=== PATIENT | female | born 1970 | race Caucasian/White ===

== ENCOUNTER 2023-04-20 09:02 | Observation (INO) ==
--- NOTE | 2023-04-15 10:21 | Anesthesiology Consultation ---
Date of Service April 15, 2023 Assessment & Plan Chart Review Chart Review: Pending: Refer to Additional Notes / Consult section (Please have patient's airway evaluated by PAT, please obtain medical clearance note per Dr. Disla's H&P) History Surgery Operation Date: 04/20/23 10:00 Proposed Procedures p Left Shoulder Arthroscopy, Rotator Cuff Repair, Distal Clavicle Excision(Left) - Kleber Disla MD Height/Weight Height: 5 ft 2 in Weight: 118.388 kg Allergies Allergy/AdvReac Type Severity Reaction Status Date / Time latex Allergy blisters Verified 04/12/23 11:12 allen Allergy Swelling Verified 04/12/23 11:12 of Lip/Tongue/Throat morphine Allergy Anaphylaxis Verified 04/12/23 11:10 nickel Allergy Rash Verified 04/12/23 15:32 Tetanus Vaccines and Toxoid Allergy Rash Verified 04/12/23 11:12 walnut Allergy Swelling Verified 04/12/23 11:12 of Lip/Tongue/Throat erythromycin base AdvReac "worms Verified 04/12/23 11:12 crawling under my skin" artificial sweeteners Allergy migraine, Uncoded 04/12/23 11:12 angry/agitation Medications Home Medications Medication Instructions Recorded Confirmed Last Taken albuterol sulfate 90 mcg/actuation 1 inh inhalation QID PRN sob 04/12/23 04/12/23 Unknown aerosol inhaler atorvastatin 20 mg tablet 20 mg PO HS 04/12/23 04/12/23 Unknown bupropion HCl 150 mg 24 hr tablet, 150 mg PO HS 04/12/23 04/12/23 Unknown extended release (Wellbutrin XL) buspirone 10 mg tablet 10 mg PO TID 04/12/23 04/12/23 Unknown cyclobenzaprine 10 mg tablet 10 mg PO TID PRN Muscle Spasm 04/12/23 04/12/23 Unknown escitalopram oxalate 20 mg tablet 20 mg PO HS 04/12/23 04/12/23 Unknown (Lexapro) fluticasone propionate 50 1 spray intranasal HS 04/12/23 04/12/23 Unknown mcg/actuation nasal spray,suspension furosemide 20 mg tablet (Lasix) 20 mg PO BID 04/12/23 04/12/23 Unknown gabapentin 300 mg capsule 300 mg PO HS 04/12/23 04/12/23 Unknown lorazepam 0.5 mg tablet 0.5 mg PO DAILY PRN Anxiety 04/12/23 04/12/23 Unknown losartan 25 mg tablet 25 mg PO HS 04/12/23 04/12/23 Unknown meloxicam 7.5 mg tablet 7.5 mg PO BID 04/12/23 04/12/23 Unknown montelukast 10 mg tablet 10 mg PO PM 04/12/23 04/12/23 Unknown (Singulair) tirzepatide 10 mg/0.5 mL 10 mg subcut WK 04/12/23 04/12/23 Unknown subcutaneous pen injector (Mounjaro) Past Medical History Medical History Morbid obesity with BMI of 45.0-49.9, adult Pulmonary nodules Dr. Mullen, [facility] monitoring Osteoarthritis Lower back pain GERD (gastroesophageal reflux disease) diet controlled DM type 2 (diabetes mellitus, type 2) Anxiety and depression HTN (hypertension) Asthma rare use of PRN inh PONV (postoperative nausea and vomiting) Past Family History Family History Other No family history of adverse response to anesthesia Past Surgical History Surgical History History of esophagogastroduodenoscopy (EGD) History of colonoscopy History of dilation of urethra History of Achilles tendon repair BL History of oral surgery H/O ovarian cystectomy History of arthroscopy of right knee x2 History of arthroscopy of left knee History of endometrial ablation + tubal ligation History of x2 History of carpal tunnel release of both wrists History of bunionectomy Social History Smoking Status: Former smoker Do You Dip or Chew Tobacco: No Smoking End Date: 1996 Hx Alcohol Use: Yes alcohol intake frequency: holidays/special occasions only Hx Substance Use: No substance use type: does not use Testing Electrocardiogram Date: 04/10/23 NSR @ 63 bpm Poor R wave progression Nonspecific T wave abnormality
[~2023-04-20 09:02] MED LIST: BUPIVACAINE 0.5 % 5 MG/1 ML PF 10ML VIAL ONE; DEXAMETHASONE SOD INJ 4 MG/ML VIAL ONE; EpINEphrine HCL INJ 1 MG/ML 1ML SYRINGE IR ONE; LIDOCAINE 2% 2 ML VIAL/AMP(20MG/ML) INFIL ONE; LR 15ML/HR IV SCH; MIDAZOLAM HCL 1 MG/ML 2ML VIAL ONE; ONDANSETRON INJ 2 MG/ML 2 ML VIAL ONE; PROPOFOL IV EMULSION 10 MG/ML 20 ML VIAL IV ONE; TRANEXAMIC ACID 1,000 MG **IV Pre-op IV SCH; ceFAZolin 2000MG 2,000 MG/15 ML SYR IV SCH; fentaNYL citrate PF 100 MCG/2 ML VIAL ONE
[2023-04-20 09:41] LABS: Basophils # (auto) 0.03 K/uL (0.00-0.20); Basophils % (auto) 0.3 %; Eosinophils # (auto) 0.21 K/uL (0.00-0.50); Eosinophils % (auto) 2.1 %; Hematocrit (blood only) 41.7 % (37.0-47.0); Hemoglobin 14.1 g/dl (12.0-16.0); Immature Granulocytes # (auto) 0.05 K/uL (0.01-0.20); Immature Granulocytes % (auto) 0.5 %; Lymphocytes # (auto) 3.15 K/uL (1.20-3.40); Lymphocytes % (auto) 31.1 %; Mean Corpuscular Hemoglobin 31.2 pg (25.0-34.0); Mean Corpuscular Hgb Conc 33.8 g/dL (32.0-36.0); Mean Corpuscular Volume 92.3 fL (80.0-100.0); Mean Platelet Volume 9.7 fL (9.4-12.4); Monocytes % (auto) 6.9 %; Neutrophils % (auto) 59.1 %; Platelet Count 212 K/uL (130-400); RDW Coefficient of Variation 12.6 % (11.5-14.5); RDW Standard Deviation 42.8 fL (36.4-46.3); Red Blood Count 4.52 M/uL (4.20-5.40); White Blood Count 10.14 K/ul (4.8-10.8)
[2023-04-20 09:59] LABS: BUN Creatinine Ratio 17.1 (10-20); Calcium 9.4 mg/dl (8.6-10.3); Creatinine Clr Calc Pharmacy 99.8 ml/min; Est GFR (African American) 94.7 ml/min; Est GFR (Non-African American) 81.7 ml/min; Potassium 3.9 mmol/L (3.5-5.1)
[2023-04-20 10:07] LABS: INR 0.9 (0.9-1.1); Partial Thromboplastin Time 27 Seconds (21-31); Prothrombin Time 10.3 Seconds (9.0-12.0)
[2023-04-20] MEDS ORDERED: ATROPINE SULFATE 0.1 MG/ML 10ML SYR IV PRN (10:17)
[2023-04-20] MEDS ORDERED: ePHEDrine sulfate 50 MG/ML AMP IV PRN (10:17)
[2023-04-20] MEDS ORDERED: fentaNYL citrate PF 100 MCG/2 ML VIAL IV PRN (10:17)
[2023-04-20] MEDS ORDERED: LIDOCAINE 1%/EPINEPHRINE 1:100,000 20 ML VIAL ONE (10:19)
--- NOTE | 2023-04-20 10:23 | History & Physical Bridge Note ---
Date of Service April 20, 2023 History & Physical Bridge Note I have examined the patient, reviewed the History & Physical and in the interval since the performance of the History & Physical I have noted the following changes of clinical significance: no changes noted
[2023-04-20] MEDS ORDERED: methylPREDNISolone acetate 80 MG/ML VIAL ONE (10:34)
[2023-04-20] MEDS ORDERED: LIDOCAINE 1% LOCAL 20 ML VIAL ONE (10:34)
[2023-04-20] MEDS ORDERED: ceFAZolin 330 MG/ML 1 GM VIAL ONE (13:59)
[2023-04-20] MEDS ORDERED: ROCURONIUM BROMIDE 10 MG/ML 5 ML VIAL IV ONE ×2 (13:59)
[2023-04-20] MEDS ORDERED: oxyCODONE/ACETAMINOPHEN 5mg/325mg TAB PO PRN ×2 (14:22)
[2023-04-20] MEDS ORDERED: ONDANSETRON INJ 2 MG/ML 2 ML VIAL IV PRN ×2 (14:22→20:02)
[2023-04-20] MEDS ORDERED: ceFAZolin 1000MG 1,000 MG/7.5 ML SYR IV ONE (14:22)
--- NOTE | 2023-04-20 14:34 | Operative Report ---
Post Operative Report Pre & Post Diagnosis Operation Date: 04/20/23 10:30 Pre-Op Diagnosis: Left Shoulder Rotator Cuff Tear Post-Op Diagnosis: Left Shoulder Rotator Cuff Tear I identified the patient and participated in the time-out.: Yes Procedure Operation Date: 04/20/23 10:30 Actual Procedures p Left Shoulder Arthroscopy, Rotator Cuff Repair, Distal Clavicle Excision, Injection left Middle Finger(Left) - Kleber Disla MD Surgeon Kleber Disla MD Television Parts Tester Kiko Mercer MD; Marilee Farah PA - C Estimated Blood Loss 25 Findings Consistent with Post-Op Diagnosis Same as postoperative diagnosis. Specimens None Description of Procedure Please see detailed operative note. I attest to the content of the Intraoperative Record and any orders documented therein. Any exceptions are noted below.
--- NOTE | 2023-04-20 14:45 | Anesthesiology Progress Note ---
Date of Service April 20, 2023 Anesthesia Post Procedure Vital Signs Vital Signs: Temp Pulse Resp BP Pulse Ox O2 Del Method O2 Flow Rate 04/20/23 14:40 94 H 19 118/63 95 Oxymask 15 04/20/23 14:30 101 H 19 110/67 93 Oxymask 15 04/20/23 14:23 36.3 C L 94 H 16 107/60 92 Oxymask 15 04/20/23 09:40 36.9 C 75 20 132/81 99 Room Air Pain Intensity Left Shoulder: Pain Intensity: 5 Transfer of Care Handoff Completed per policy Notes Mental Status: alert / awake / arousable and participated in evaluation Nausea / Vomiting: adequately controlled Pain: adequately controlled Airway Patency, RR, SpO2: stable & adequate BP & HR: stable & adequate Hydration State: stable & adequate Anesthetic Complications: no major complications apparent and Pt Satisfied with anesthetic care
[2023-04-20] MEDS ORDERED: ALBUTEROL 0.083% NEBU SOLN 3 ML VIAL ONE (15:06)
--- NOTE | 2023-04-20 15:13 | Operative Report ---
Post Operative Report Pre & Post Diagnosis Operation Date: 04/20/23 10:30 Pre-Op Diagnosis: Left Shoulder Rotator Cuff Tear, AC joint arthritis Left middle finger pain, probable trigger digit. Post-Op Diagnosis: Same I identified the patient and participated in the time-out.: Yes Procedure Operation Date: 04/20/23 10:30 Actual Procedures p Left Shoulder Arthroscopy, Rotator Cuff Repair, arthroscopic distal Clavicle Excision, sterile injection left Middle Finger(Left) - Kleber Disla MD Surgeon Kleber Disla MD Hand Laminator Kiko Mercer MD; Marilee Farah PA - C Estimated Blood Loss 25 Findings Consistent with Post-Op Diagnosis Specimens None Anesthesia Type General Regional Complications none Disposition Accompanied Patient To Recovery: No Disposition: Recovery Room Indications Inessa is 52. She has left shoulder pain refractory to nonsurgical treatment. She has biceps pathology. A potential tear of the upper border of the subscapularis and a potential tear involving the leading edge of her supraspinatus. She also has symptomatic AC joint arthritis and a large anterior acromial spur. She has elected to proceed with operative intervention. In the holding area she asked me to look at and inject her left middle finger. She reports that the finger has been clicking for her but not locking. She notes tenderness at the MP flexion crease with a lump present. On examination she had full range of motion with intact FDP and FDS sensation and capillary refill. There was enlargement at the A1 dylan area which could be a small ganglion cyst versus thickening of the dylan itself. There was some minor clicking present but no locking with gripping. A new consent form was filled out and the finger will be injected while she is asleep at her request. Description of Procedure Informed consent. Patient identified. She identified the operative site as the left shoulder. I marked with my initials. A preoperative surgical timeout performed. A preop dose of IV antibiotics was given. She was taken to the operating room positioned supine on the operating room table. The anesthetic was administered. She was positioned with her heels padded and a pillow beneath her knees. Her torso was secured to the table with the kidney rest. She was position beachchair. The head was tilted and turned slightly to the opposite side to improve access to the anterior aspect of the shoulder. The tenent body positioner and [employer] arm holders were utilized. Examination of the shoulder revealed full and equal range of motion. Bony prominences were inspected and padded. The left middle finger was injected with 10 mg of Depo-Medrol and 1/2 cc of 1% plain lidocaine into the flexor sheath at the level of the metacarpal phalangeal joint flexion crease. The finger was prepped with alcohol. A 27-gauge needle was utilized. This was done prior to prepping and draping the shoulder. A posterior soft spot viewing portal was established followed by an anterior mid glenoid working portal using the outside in technique. Diagnostic arthroscopy was performed. The labrum was intact circumferentially. The chondral surfaces were normal. The middle anterior inferior and posterior inferior glenohumeral ligaments were unremarkable. Axillary pouch bare area and the posterior rotator cuff are normal. Supraspinatus and infraspinatus look normal. The synovial layer was debrided and no partial or full-thickness rotator cuff damage was noted. There was no significant tendinopathy and no calcium deposit was ident ified. The scope was placed anterior to visualize the posterior structures. The posterior capsule and labrum were unremarkable. Upon entering the shoulder joint it was noted that the biceps was completely ruptured and retracted out of the shoulder joint. The superior labrum where the biceps had ruptured had a small remnant left which was debrided. The superior labrum was lax. The subscapularis area looked normal. The medial sling of the biceps/superior glenohumeral ligament was intact. I went ahead and debrided around this area and took the synovial flagstone layer of the subscapularis. What I identified was detachment of the upper 5 to 7 mm in situ with some fraying of the tendon. This was debrided. The remainder of the tendon looked to be attached and only a small portion of the footprint was exposed. I debrided the tendon and elected to proceed with repair. An accessory anterolateral portal was created using a outside in technique and a cannula was inserted. The footprint was denuded with a curette and shaver. Rotator interval was debrided along with the subscapularis bursa. The coracoid humeral interval on the MRI was 10 to 11 mm. Clinically there was no evidence of narrowing of the coracoid humeral interval and therefore I did not think a coracoplasty was necessary. I inserted a spinal needle just lateral to the coracoid to get the appropriate angle for implant ation of the anchor. The awl was carefully inserted and tapped into place. A 4.5 mm bio composite swivel lock was inserted with good purchase. Suture management was performed and the Spectrum was utilized to pass the sutures through the tendon in a horizontal mattress fashion. 1 set of sutures was passed up through the tendon in a horizontal mattress fashion. The other set of sutures had 1 limb passed through the upper border while the other limb came directly out of the anchor but not through the tissue. The anchor was inserted just lateral to the articular cartilage margin. Suture was then tied with a modified Rj knot backed up with reverse half hitches on alternating posts using a secure repair. In the region of the suspected rotator cuff tear a suture was passed percutaneou sly through the rotator cuff using a spinal needle and brought out the anterior portal. Attention was then turned to the subacromial space. This was inspected on the bursal surface. There was minimal bursitis. The bursal surface was thoroughly inspected. I did not see any evidence of a identifiable calcium deposit. The rotator cuff was intact without evidence of partial or full- thickness tearing throughout the entire bursal surface. The undersurface of the acromion was denuded of soft tissue. She had a oddly shaped acromion undersurface. The AC joint was identified. There was a large downward sloping prominence anterior to the AC joint. This protruded downwards at least 5 to 7 mm and also proceeded medial shaw about the same. Could be ossified corico-acromial ligament. I carefully debrided this removing the anteromedial spur and flatten the undersurface of the acromion from back to front. It was also smooth from [id number]. The distal clavicle was identified. It was exposed with electrocautery and shaver. I made 2 passes with the bur removing approximately 7 to 10 mm of distal clavicle taking care to excise superior and posterior. The distal clavicle was visualized from anterior to confirm complete resection. It was measured with a probe. Superior and posterior capsule was left intact. The shaver was run through the shoulder to product picker loose debris. Arthroscopic portals were closed with 4-0 nylon. A soft sterile dressing was applied Xeroform 4 x 4's ABD foam tape. ABD in the armpit UltraSling. Patient was awakened from anesthesia without difficulty and taken to the recovery room stable condition. There were no specimens or complications. Counts were correct and blood loss is estimated to be 25 cc. At the conclusion of the operation spoke to patient's informed of my findings to discuss postoperative plan. I attest to the content of the Intraoperative Record and any orders documented therein. Any exceptions are noted below.
--- NOTE | 2023-04-20 17:10 | Communication Note ---
Date of Service: April 20, 2023 The patient was seen in phase 2. The patient stated having numbness in her B/L feet. She stated that the numbness was worse when she woke up from the [facility]. She stated that now the numbness is mostly on the plantar surface of her feet. The patient was able to ambulate to the bathroom per the nurse. The nurse spoke to Dr. Disla, and he stated one of his co-workers would come evaluate the patient prior to discharge. I spoke to the patient about the likelihood of the compression stockings and positioning that contributed to her numbness. I recommended the patient come back to the hospital if the patient's symptoms worsened or if the symptoms did not resolve by tomorrow. The patient and family member were understanding.
--- NOTE | 2023-04-20 17:42 | History & Physical Report ---
Date of Service April 20, 2023 Assessment & Plan (1) Rotator cuff tear: Plan: She is status post left rotator cuff repair with Dr. Dilsa today. Continue the sling with abduction pillow at all times. No range of motion of the left shoulder. No use of the left arm. Allowed for active range of motion of the fingers, wrist and elbow as tolerated. Readjust sling as needed for comfort. May be comfortable elevating head of bed for sleep. May resume regular diet as tolerated. Pain medication as prescribed and as needed for her left shoulder discomfort. Plan is to admit due to paresthesias. Will obtain a glycemic control consult due to her history of diabetes. Ice to left shoulder as needed for pain and swelling. Findings discussed with Dr. Disla. Patient understands and agrees with the plan. Will plan for discharge to home with her tomorrow if things are improved. (2) Paresthesia of bilateral legs: Plan: She does have progressing paresthesias of the right leg. Will plan to keep overnight in observation. We will do neurovascular checks frequently during her inpatient stay. Elevation as needed. We are going to discontinue the ARMOND stockings for now. She can be out of bed with bedside commode and assistance. She may weight-bear as tolerated but may need to need a cane in her right hand to assist with ambulation. She is not able to use her left arm for any assistive device. Continue to evaluate paresthesias. She may do full range of motion of the lower extremity joints as tolerated. Will obtain a physical therapy consult for tomorrow if her paresthesias have improved to assess ability to ambulate with or without an assistive device and to safely return home. Will reeval paresthesias in the AM. Hopefully this will improve relatively quickly. Most likely from positioning or seatbelt during her surgery. She understands and agrees with the plan. All questions were answered. Hopefully plan to return home with her tomorrow if things have improved. Approximately 60 minutes were spent obtaining a history, performing physical exam, discussing findings with patient and Dr. Disla, doing admission orders and history and physical. Admission and Anticipated Discharge Date Admission Date: Admission date: 04/20/2023 Anticipated discharge date: 05-13 History of Present Illness Chief Complaint: numbness bilateral lower extremities Primary Care Provider: Juwan Padilla Patient is a pleasant 52-year-old female who is seen in ambulatory surgery unit after undergoing an elective left left rotator cuff repair of her shoulder. Her surgery was performed today by Dr. Disla. Postoperatively she has had noticeable numbness of both of her feet. The right leg has been getting worse over the last hour or 2. She states that it started in both of her feet and the right leg has progressed up to the mid thigh area. It was thought that it was from the thigh-high ARMOND stockings that were digging into her thighs and knee teds were applied. She did have a rotator cuff repair in the beachchair position today. She denies any pain in either leg. She states that the left foot is also numb but does seem to be improving. She is able to ambulate to the bathroom but feels that this is getting worse. She states that her legs feel like "tree trunks". She does not feel that she is able to lift her foot. She does not feel that her leg, especially her right leg will hold her. The left shoulder is doing fine. The sling is in place. She has had no postoperative nausea or vomiting. Denies any significant pain in the left shoulder. She does feel that the nerve block is still working. She is never had numbness or tingling in either leg in the past. Allergies Allergy/AdvReac Type Severity Reaction Status Date / Time latex Allergy blisters Verified 04/20/23 09:35 allen Allergy Swelling Verified 04/20/23 09:35 of Lip/Tongue/Throat morphine Allergy Anaphylaxis Verified 04/20/23 09:35 nickel Allergy Rash Verified 04/20/23 09:35 Tetanus Vaccines and Toxoid Allergy Rash Verified 04/20/23 09:35 walnut Allergy Swelling Verified 04/20/23 09:35 of Lip/Tongue/Throat erythromycin base AdvReac "worms Verified 04/20/23 09:35 crawling under my skin" artificial sweeteners Allergy migraine, Uncoded 04/20/23 09:35 angry/agitation Home Medications Medication Instructions Recorded Confirmed Type albuterol sulfate 90 mcg/actuation 1 inh inhalation QID PRN sob 04/12/23 04/20/23 History aerosol inhaler atorvastatin 20 mg tablet 20 mg PO HS 04/12/23 04/20/23 History bupropion HCl 150 mg 24 hr tablet, 150 mg PO HS 04/12/23 04/20/23 History extended release (Wellbutrin XL) buspirone 10 mg tablet 10 mg PO TID 04/12/23 04/20/23 History cyclobenzaprine 10 mg tablet 10 mg PO TID PRN Muscle Spasm 04/12/23 04/20/23 History escitalopram oxalate 20 mg tablet 20 mg PO HS 04/12/23 04/20/23 History (Lexapro) fluticasone propionate 50 1 spray intranasal HS 04/12/23 04/20/23 History mcg/actuation nasal spray,suspension furosemide 20 mg tablet (Lasix) 20 mg PO BID 04/12/23 04/20/23 History gabapentin 300 mg capsule 300 mg PO HS 04/12/23 04/20/23 History lorazepam 0.5 mg tablet 0.5 mg PO DAILY PRN Anxiety 04/12/23 04/20/23 History losartan 25 mg tablet 25 mg PO HS 04/12/23 04/20/23 History meloxicam 7.5 mg tablet 7.5 mg PO BID 04/12/23 04/20/23 History montelukast 10 mg tablet 10 mg PO PM 04/12/23 04/20/23 History (Singulair) tirzepatide 10 mg/0.5 mL 10 mg subcut WK 04/12/23 04/20/23 History subcutaneous pen injector (Mounjaro) acetaminophen 500 mg tablet 1,000 mg (2 x 500 mg) PO Q8H 30 04/20/23 Rx (Tylenol Extra Strength) days #180 tabs hydrocodone 5 mg-acetaminophen 325 1 tab PO Q4H PRN pain #20 tabs 04/20/23 Rx mg tablet ibuprofen 200 mg tablet (Advil) 600 mg (3 x 200 mg) PO QID PRN 04/20/23 Rx fever or pain #30 tabs Past Med/Surg History Medical History Morbid obesity with BMI of 45.0-49.9, adult Pulmonary nodules Dr. Mullen, [facility] monitoring Osteoarthritis Lower back pain GERD (gastroesophageal reflux disease) diet controlled DM type 2 (diabetes mellitus, type 2) Anxiety and depression HTN (hypertension) Asthma rare use of PRN inh PONV (postoperative nausea and vomiting) Surgical History History of esophagogastroduodenoscopy (EGD) History of colonoscopy History of dilation of urethra History of Achilles tendon repair BL History of oral surgery H/O ovarian cystectomy History of arthroscopy of right knee x2 History of arthroscopy of left knee History of endometrial ablation + tubal ligation History of x2 History of carpal tunnel release of both wrists History of bunionectomy Family History Other No family history of adverse response to anesthesia Social History Smoking Status: Former smoker Smoking End Date: 1996; Second Hand Exposure: Yes; Do You Dip or Chew Tobacco: No; Tobacco Cessation Education Requested by Patient: No Hx Alcohol Use: Yes Hx Substance Use: No Preferred Language: Maori Communication Ability: Effective 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 Beliefs That Will Affect Care: None Current Living Situation: Family Feels Safe at Home: Yes Safety Concerns: Feels Safe At This Time Assistive Devices: None Review of Systems Review of Systems: As per HPI otherwise reviewed and noncontributory Physical Exam Constitutional: WD/WN, vitals as above Eyes: PERRL, conjunctivae normal, anicteric sclerae ENMT: external ear and nose normal, oropharynx normal Neck: trachea midline, no thyromegaly Respiratory: normal respiratory effort, lungs clear to auscultation Cardiovascular: RRR, no murmur, no edema Chest (Breasts): Chest: normal inspection of chest Gastrointestinal (Abdomen): normal bowel sounds, soft, nontender, no hepatosplenomegaly Musculoskeletal: Exam of her left upper extremity: She does have full flexion and extension of her fingers. Sling is in place of her left shoulder. Postoperative dressings are in place, clean and dry. Distal pulses are 1+. Capillary fill is brisk. Fingers are warm. She has some mild difficulty with extending her wrist and her thumb. Suspect this is from the peripheral nerve block that she had preoperatively. Exam of her right lower extremity: She has normal motor strength of her right ankle, leg and thigh. She has diminished sensation along the lateral aspect of the right foot tracing up to the posterior aspect of the right knee. Skin is healthy and intact. Knee hide teds are in place. No distal edema. Distal pulses are 1+ in her right lower extremity. She has normal sensation on the medial side of the foot and lower leg. Strength with dorsiflexion, plantarflexion, inversion and eversion of the ankle, knee extension and flexion, and hip flexion, adduction and abduction are all 5/5. Calf is supple and nontender. Toes are nontender. Foot is nontender. Distal pulses are 1+. Capillary fill is brisk. Foot is warm. Exam of her left lower extremity: She has no distal edema. Knee-high Armond st ocking in place. Calf is supple and nontender. Full strength with dorsiflexion, plantarflexion, inversion and eversion of the ankle, flexion and extension of the left knee and hip flexion, adduction and abduction are all 5/5. Mild diminished sensation on the lateral aspect of the left foot. Toes are nontender. Foot is nontender. Distal pulses are 1+. Capillary fill is brisk. Foot is warm. Skin: no rashes, warm and dry Neurologic: Motor/Sensory: + sensory deficit (Right leg and left foot.); no fasciculations Psychiatric: A+Ox3, euthymic affect Results & Data Results & Data Vital Signs (Past 12 Hours) Vital Signs Temp Pulse Pulse Resp BP Pulse Ox O2 Del Method 04/20/23 17:00 37.2 C 102 H 18 121/70 94 Room Air 04/20/23 16:12 37.0 C 99 H 18 114/69 95 Room Air 04/20/23 15:30 37.2 C 95 H 18 104/66 93 Room Air 04/20/23 15:25 97 H 14 109/53 L 95 Room Air 04/20/23 15:20 96 H 14 102/64 99 Aerosol Mask 04/20/23 15:10 91 H 13 111/59 L 100 Aerosol Mask 04/20/23 15:00 97 H 17 110/62 93 Room Air 04/20/23 14:50 95 H 17 110/62 94 Oxymask 04/20/23 14:40 94 H 19 118/63 95 Oxymask 04/20/23 14:30 101 H 19 110/67 93 Oxymask 04/20/23 14:23 36.3 C L 94 H 16 107/60 92 Oxymask 04/20/23 09:40 36.9 C 75 20 132/81 99 Room Air O2 Flow Rate 04/20/23 17:00 04/20/23 16:12 04/20/23 15:30 04/20/23 15:25 04/20/23 15:20 8 04/20/23 15:10 8 04/20/23 15:00 04/20/23 14:50 4 04/20/23 14:40 15 04/20/23 14:30 15 04/20/23 14:23 15 04/20/23 09:40 Code Status & VTE Plan VTE Prophylaxis Plan VTE Prophylaxis will be ordered: No Reason for no VTE drug order: Treatment not indicated
[2023-04-20] MEDS: HYDROCODONE/ACETAMOPHEN 5/325MG TAB PO PRN (18:35)
[2023-04-20] MEDS ORDERED: MAGNESIUM HYDROXIDE SUSP 30 ML UDC PO PRN (20:02)
[2023-04-20] MEDS ORDERED: LORazepam 0.5 MG TAB PO PRN (20:02)
[2023-04-20] MEDS ORDERED: PHARMACY GLYCEMIC MGMT CONSULT PRN (20:02)
[2023-04-20] MEDS ORDERED: HYDROmorphone INJ 1 MG/ML SYRINGE IV PRN (20:02)
[2023-04-20] MEDS ORDERED: SODIUM CHLORIDE 0.9% 1,000 ML IV SCH (20:02)
[2023-04-20] MEDS ORDERED: oxyCODONE HCL IR 5 MG TAB (IMMEDIATE RELEASE) PO PRN (20:02)
[2023-04-20] MEDS ORDERED: traMADol HCL 50 MG TABLET PO PRN (20:02)
[2023-04-20] MEDS ORDERED: NALOXONE HCL 0.4 MG/1 ML VIAL/CARP IV PRN (20:02)
[2023-04-20] MEDS ORDERED: diphenhydrAMINE 50 MG/ML VIAL IV PRN (20:02)
[2023-04-20] MEDS ORDERED: bisacodyL 10 MG SUPP PR PRN (20:02)
[2023-04-20] MEDS ORDERED: HYDROmorphone INJ 0.5 MG/0.5 ML SYR IV PRN (20:02)
--- OUTSIDE RECORDS SUMMARY | 2023-04-20 20:30 | External Medical Summary | Continuity of Care Document ---
Author Name Unknown Organization [facility] [place] [id number] Address [address] [place] [address] [id number] Care Team Providers Care Customer Development Manager Name Role Phone Ankit Alonso Primary Care Physician [phone] [facility] [id number] Date(s): 04/10/23 - 04/10/23 [facility] [place] [id number] Medicine [address] [place] [id number] Encounter Diagnosis Rotator cuff tear, left(Discharge Diagnosis) - 04/10/23 Discharge Disposition: Home or Self Care Attending Physician: ANYA Farah, Marilee Rubin Referring Physician: MD Nighat, Kleber Hicks Allergies, Adverse Reactions, Alerts Substance Reaction Severity Status erythromycin unknown Active morphine unknown Active tetanus toxoid unknown Active mangoes allen Active Allergy Not found in Search 1 artificial sweetner Active walnuts walnut Active 1artificial sweetner Medications Albuterol (Eqv-ProAir HFA) 90 mcg/inh inhalation aerosol Start: 04/10/23 14:41:00 EST, prn Start Date: 04/10/23 Status: Ordered atorvastatin 20 mg oral tablet Start: 04/10/23 14:41:00 EST, 1 tab, PO, Daily Start Date: 04/10/23 Status: Ordered buPROPion 150 mg/24 hours (XL) oral tablet, extended release Start: 04/10/23 14:39:00 EST, 1 tab, PO, Daily Start Date: 04/10/23 Status: Ordered busPIRone 10 mg oral tablet Start: 04/10/23 14:40:00 EST, 1 tab, PO, tid Start Date: 04/10/23 Status: Ordered escitalopram 20 mg oral tablet Start: 04/10/23 14:40:00 EST, 1 tab, PO, Daily Start Date: 04/10/23 Status: Ordered fluticasone 50 mcg/inh nasal spray Start: 04/10/23 14:39:00 EST, 1 spray, each nostril, Daily Start Date: 04/10/23 Status: Ordered FREESTYLE DIANNE 3 SENSOR Start: 04/10/23 14:39:00 EST, FREESTYLE DIANNE 3 SENSOR Start Date: 04/10/23 Status: Ordered furosemide 20 mg oral tablet Start: 04/10/23 14:40:00 EST, 1 tab, PO, bid Start Date: 04/10/23 Status: Ordered gabapentin 300 mg oral capsule Start: 04/10/23 14:40:00 EST, just starting Start Date: 04/10/23 Status: Ordered losartan 25 mg oral tablet Start: 04/10/23 14:39:00 EST, 1 tab, PO, Daily Start Date: 04/10/23 Status: Ordered meloxicam 7.5 mg oral tablet Start: 04/10/23 14:39:00 EST, 1 tab, PO, bid Start Date: 04/10/23 Status: Ordered montelukast 10 mg oral tablet Start: 04/10/23 14:38:00 EST, 1 tab, PO, qPM Start Date: 04/10/23 Status: Ordered Mounjaro 10 mg/0.5 mL subcutaneous solution Start: 04/10/23 14:39:00 EST, 10 mg =, subQ, skipped for sugery Start Date: 04/10/23 Status: Ordered Hugheston 5 mg-325 mg oral tablet Start: 04/11/23 9:50:00 EST, 1 tab, PO, q4h, Disp# 18 tab, Refills: 0, Note to Pharmacy: initial therapy, PRN: as needed for pain, Pharmacy: [facility] Start Date: 04/11/23 Status: Ordered ondansetron 4 mg oral tablet Start: 04/10/23 14:39:00 EST, 1 tab, PO, ONCE, PRN: as needed for nausea/vomiting Start Date: 04/10/23 Status: Ordered Mental Status 04/10/23 Barriers to Learning one year None evide nt Mandatory Health Literacy Documentation Yes Health Literacy Communication Barriers N ever Primary Language Upper Sorbian Problem List Condition Confirmation Course Effective Dates Status Health St atus Informant Arthritis Confirmed Active DVT (deep venous thrombosis) 1 Confirmed Active Diabetes Confirmed Active High blood pressure Confirmed Active Joint swelling Confirmed Active Rotator cuff tear, left Confirmed Active blood clot Diagnosis Diagnosis Type Effective Dates Health Status Cl inical Service Informant Rotator cuff tear, left Discharge Diagnosis 04/10/23 Vital Signs Most recent to oldest [Reference Range]: 1 Temperature [36.5-37.9 DegC] 36.2 DegC *LOW* (04/10/23 2:38 PM) Heart Rate 68 bpm (04/10/23 2:38 PM) Blood Pressure 140/70mmHg (04/10/23 2:38 PM) Cuff Pulse Pressure 70 mmHg (04/10/23 2:38 PM) Social History Social History Type Response Smoking Status Never smoked cigaret gemini Sex Female Cardiology * Contributor_system, MUSE01: VERIFY, PERFORM Event Display: EKG Authored Date: Please click on link to see image. History and physical note * ANYA rGegg, Minerva: PERFORM Event Display: .HP Authored Date: Primary Care Provider MD Celeste, Ankit Castro Referring Provider MD Nighat, Kleber Hicks Chief Complaint L shoulder pre op History of Present Illness Inessa is a 52-year-old female here today for preopfor show arthroscopy, rotator cuff repair, distal clavicle excision with Dr Disla. She developed left shoulder and arm painafter injury inAugust 2022 during College move in when she felt a tear lifting a 60 lb box. She had immediate pain in the arm and shoulder swelling. She did not have bruising at onset. After injury she was evaluated with Dr. Tirado's PA at [facility] ordered an MRI. She did not try PT or injection.Shewas scheduled for surgery.Patient states she was referred to me by Dr. Guy at [facility] in [place] who has done multiple of her prior procedures. Presently, she reports constant pain event at rest deep in her shoulder and in her neck. She also has numbness in her hand which she has not had since carpal tunnel release in the 90s. She takes Meloxicam 7.5mg BID.She previously had bilateral carpal tunnel release. [1] Denies any major changes since she was last seen other than she feels like it isgetting worse. Patient reports she had a suspectedblood clot in10/2021 and was not treated. She had a Doppler that did not indicate a blood clot but had an abnormal blood test, elevated D-dimer and LLE swelling. She has since discontinued estrogen supplementation. No history of staph or MRSA. Problems. No allergy to metals. She does report some numbness in her right little finger. [2] hehas no family history of blood clots Review of Systems DeniesRecent illnesses, colds/flu, pneumonia, COVID or COVID exposures; DeniesFevers, chills, malaise; DeniesChest pain, heart palpitations; DeniesShortness of breath, cough; DeniesHeadacheor blurry vision; DeniesAbdominal pain, nausea, vomiting, diarrhea, or urinary symptoms Physical Exam Vitals & Measurements T:36.2C HR:68(Monitored) BP:140/70 SpO2:98% General: Pt is well nourished, seated on the exam table AA&O, in NAD, calm and cooperative during exam HENT: Nontraumatic, no gross deformity, hearing and vision grossly in-tact, PERRL Heart: +S1, +S2, RRR, no murmurs appreciated Lungs: CTABL, no wheezing appreciated Focusing on the patient'sleftupper extremity: Atrophyabsent Wingingabsent Circulation:1+Radial pulse Capillary refill less than two seconds Numbness of right little finger otherwise normal sensation Left shoulder ROM:Forward [id number]/ ER at side 30/ IRup backL1 Left Liftoffintact Left belly pressintact Motor function5/5: shoulder external rotation and internal rotation, shoulder abduction Pain with resisted shoulder external rotation but no weakness Tenderness of lateral and posterior acromion, AC joint, Provocative testing of the shoulder: Neerpositive Hawkinspositive Adduction testpositive Abduction stress testpositive Focus on the cervical spine: Full movement of neck but discomfort Spurling maneuver in both directions causes numbness in right little finger [3] Diagnostic Results Dr Disla obtained and personally interpreted 3views of the left shoulder which shows AC jointarthritis. No bone or soft tissue lesions except for calcification at rotator cuff attachment. Calcification appears more posteriorly oriented. Type III acromion and her acromiohumeral interval is 11mm. No glenohumeral joint arthritis. No os acromiale. No fractures or dislocations.Spine and ribsare unremarkable reviewed x-rays of the left shoulder taken on 12/29/2022t [facility] which showsindeterminate acromial shape No glenohumeral arthritis. Undersurface acromial spur with AC joint arthritis. Calcification at rotator cuff insertion. Dr Disla reviewed an MRI of the left shoulder which shows small tear ofsupraspinatus and probable upper border tear of subscapularis tendon with subluxation of biceps tendon. Atrophy of supraspinatus without fatty infiltration. Motion artifact noted. [4] Assessment/Plan 1.Rotator cuff tear, left pre op The risks and benefits of surgery as well as the post operative course was explained and discussed with the patient. Written consent obtained. The patient's past medical history, surgeries, social history, medication list, allergies and PDMP were reviewed and confirmed with the patient. Patientwill needmedical clearance. EKGwas done today that showed normal sinus rhythm, poor R wave progression and nonspecific T wave abnormality. Patient said that this has happened beforeand hercardiologist Dr. Kary [facility] and there was no concerning findings.He said ifthishappened again tosend him the results. Preoperative orders were placed. We discussed postoperative pain medications includingoxycodone, tylenol and NSAIDs,as well as icing and elevating to control pain. Additional medications -stool softener as needed to prevent constipation while on narcotics. The patient has been scheduled for post operative appointments, including any PT or HH services, per surgeon's preference. The patient was given a preoperative booklet and we reviewed the most pertinent things leading up to the surgery and the day of surgery; including any assisted devices pt may need, when/who to call for the surgery time, where to arrive the day of surgery, NPO after midnight, medications to hold, prepping the skin with CHG to prevent infection etc. All of their questions and concerns were answered today. They were instructed to call our office if they have any further questions or concerns. Patient was wondering if Dr. Disla while she is asleep for her shoulder if he could injecther leftring finger trigger finger.I said that I would discuss with him. Problem List/Past Medical History Ongoing Arthritis Diabetes DVT (deep venous thrombosis) High blood pressure Joint swelling Rotator cuff tear, left Anxiety/depression Medications acetaminophen-hydrocodone(Hugheston 5 mg-325 mg oral tablet), 1 tab, PO, q4h, PRN albuterol(Albuterol (Eqv-ProAir HFA) 90 mcg/inh inhalation aerosol) atorvastatin(atorvastatin 20 mg oral tablet), 20 mg= 1 tab, PO, Daily buPROPion(buPROPion 150 mg/24 hours (XL) oral tablet, extended release), 150 mg= 1 tab, PO, Daily busPIRone(busPIRone 10 mg oral tablet), 10 mg= 1 tab, PO, tid escitalopram(escitalopram 20 mg oral tablet), 20 mg= 1 tab, PO, Daily fluticasone nasal(fluticasone 50 mcg/inh nasal spray), 1 spray, each nostril, Daily furosemide(furosemide 20 mg oral tablet), 20 mg= 1 tab, PO, bid gabapentin(gabapentin 300 mg oral capsule) losartan(losartan 25 mg oral tablet), 25 mg= 1 tab, PO, Daily meloxicam(meloxicam 7.5 mg oral tablet), 7.5 mg= 1 tab, PO, bid montelukast(montelukast 10 mg oral tablet), 10 mg= 1 tab, PO, qPM ondansetron(ondansetron 4 mg oral tablet), 4 mg= 1 tab, PO, ONCE, PRN tirzepatide(Mounjaro 10 mg/0.5 mL subcutaneous solution), 10 mg, subQ unlisted medication(FREESTYLE DIANNE 3 SENSOR) Allergies Allergy Not found in Searchartificial sweetner erythromycinunknown mangoesmango morphineunknown tetanus toxoidunknown walnutswalnut Social History Smoking Status Never smoked cigarettes Family History Diabetes type: Unknown. Heart disease: Unknown. Stroke: Unknown. Health Status Family Member(s) Recommendations Health Maintenance Pending(in the next year) OverDue Adult Influenza Vaccine due09/16/22and every 1year Due Adult COVID-19 Vaccination due04/11/23Unknown Frequency Adult Social Determinants of Health Screening due04/11/23Unknown Frequency Breast Cancer Screening due04/11/23Unknown Frequency Cervical Cancer Screening due04/11/23Unknown Frequency Colorectal Cancer Screening due04/11/23Unknown Frequency Diabetes Management A1c due04/11/23Unknown Frequency Diabetic Eye Exam due04/11/23Unknown Frequency Hepatitis C Screening due04/11/23One-time only Lipid Screening due04/11/23Unknown Frequency Pneumococcal Vaccine Adults and Adolescents with Chronic Illness due04/11/23One-time only Shingles Vaccine due04/11/23One-time only Due In Future Body Mass Index not due until03/15/24and every 366day Satisfied(in the past 1 year) Satisfied Body Mass Index on03/15/23.Satisfied by GARRICK Neri Kelley [1]Kleber Disla; Rama Stover 03/15/2023 16:11 EST [2]Kleber Disla; Rama Stover 03/15/2023 16:11 EST [3]Kleber Disla; Rama Stover 03/15/2023 16:11 EST [4]Kleber Disla; Arelis Stoveryleigh 03/15/2023 16:11 EST Electronic Signature on File Electronically Reviewed/Signed by: Olga Gregg PA-C Author Signature Dt/Tm:04/11/2023 04:54 PM Physician Ecommerce Analyst, [facility] [address], [place] [address] Electronically Reviewed/Signed by: Kleber Disla MD Cosigner Signature Dt/Tm: 04/11/2023 05:01 PM Division of Sports Medicine [facility] Patient Care team information Care Team Personnel Name: MD Mercer Aaradhana J Position: Resident Member Role: Lifetime Relationship Address: Address: [address] [place] [address] Name: MD Alonso Brian C Position: Referring DIRECT Member Role: Primary Care Provider Address: Address: [address] [place] [address]
--- OUTSIDE RECORDS SUMMARY | 2023-04-20 20:30 | External Medical Summary | Continuity of Care Document ---
Author Name Unknown Organization [facility] [id number] Address [address] [place] [id number] Care Team Providers Care Investigator Internal Revenue Name Role Phone JazminAnkit matthews Matthew Primary Care Physician [phone] [id number] Date(s): 03/15/23 - 03/15/23 [facility] [address] [place] [id number] Sports Medicine [address] [place] [id number] Encounter Diagnosis Rotator cuff tear, left(Discharge Diagnosis) - 03/15/23 Discharge Disposition: Home or Self Care Attending Physician: MD Disla Paul S Assessment and Plan Extracted from: Title:Kleber Disla Author:Rama Stover te:03/15/23 IMPRESSION: 1) Left shoulder rotator cuff tear, AC joint arthritis, and biceps tendon tear versus subluxation 2) Neck stiffness 2) Right arm numbness PLAN: Conservative options include PT and cortisone injection. Surgery is an option which would include left shoulder arthroscopy, rotator cuff repair, and distal clavicle excision. Lengthy discussion of surgical risk, benefits, procedure, and rehabilitation. Surgical consent signed. Discussed she may have other causes of numbness and muscle spasmssuch as her neck which she may consider further evaluation with a spine surgeon or further evaluation with me at a later appointment. Order referral provided for PT to work on shoulder stiffness and range of motion Follow-up as needed for [id number] operative appointmentscaden gets discomfort in her bicep. She was told that her biceprupture. That may be the case. If so I would not recommend repair. If her biceps is still intact she may need a tenotomy. Medications No Known Medications Mental Status 03/15/23 Barriers to Learning one year None evide nt Mandatory Health Literacy Documentation Yes Health Literacy Communication Barriers N ever Primary Language Vietnamese Problem List Condition Confirmation Course Effective Dates Status Health [facility] Informant Rotator cuff tear, left Confirmed Active Diagnosis Diagnosis Type Effective Dates Health Status [facility] Service Informant Rotator cuff tear, left Discharge Diagnosis 03/15/23 Vital Signs Most recent to oldest [Reference Range]: 1 Height 159.5 cm (03/15/23 3:57 PM) Patient Weight 118.6 kg (03/15/23 3:57 PM) Body Mass Index 46.62 kg/m2 (03/15/23 3:57 PM) Social History Social History Type Response Smoking Status Never smoked cigaret gemini Sex Female Ortho Outpt Note * Rama Stover: PERFORM, MODIFY, MODIFY MD Nighat, Kleber Hicks: MODIFY Event Display: Ortho Outpt Note Authored Date: [id number] Primary Care Provider MD Alonso Brian C Chief Complaint Left shoulder injury second opinion History of Present Illness Jonny Hernández presents today [facility] opinion of left shoulder injury. She developed left shoulder and arm painafter [place] she felt a tear lifting a 60 lb box. She had immediate pain in the arm and shoulder swelling. She did not have bruising at onset. After injury she was evaluated with Dr. Tirado's PA at [facility] in [facility] ordered an MRI. She did not try PT or injection.She was scheduled for surgery.Patient states she was referred to me by Dr. Guy at [facility] in [place] who has done multiple of herprior procedures. Presently, she reports constant pain event at rest deep in her shoulder and in her neck. She also has numbness in her hand which she has not had since carpal tunnel release in the 90s. She takes Meloxicam 7.5mg BID.She previously had bilateral carpal tunnel release. Patient reports she had a suspectedblood clot in10/2021 and was not treated. She had a Doppler that did not indicate a blood clot but had an abnormal blood test and LLE swelling. She has since discontinued estrogen supplementation. No history of staph or MRSA. Problems. No allergy to metal s. She does report some numbness in her right little finger. Review of Systems Complete 14 system review in shared EMR Physical Exam Vitals & Measurements HT:159.5cm WT:118.6kg WT:118.600kg(Dosing) BMI:46.62 Focusing on the patient'sleftupper extremity: Atrophyabsent Wingingabsent Circulation:1+Radial pulse Capillary refill less than two seconds Numbness of right little finger otherwise normal sensation Right shoulder ROM: Forward elevation 170/ ER at side 40/ IRup backT12 Left shoulder ROM:Forward [id number]/ ER at side 30/ IRup backL1 Right Liftoffintact Left Liftoffintact Right belly pressintact Left belly pressintact Motor function5/5: shoulder external [...] directions causes numbness in right little finger Diagnostic Results I obtained and personally interpreted 3views of the left shoulder which shows AC joint arthritis.No bone or soft tissue lesions except for calcification at rotator cuff attachment. Calcification appears more posteriorly oriented. Type III acromion and her acromiohumeral interval is 11 mm. No glenohumeral joint arthritis. No os acromiale. No fractures or dislocations.Spine and ribs are unremarkable I reviewed x-rays of the left shoulder taken on 12/29/2022t [facility] which shows indeterminateacromial shape No glenohumeral arthritis. Undersurface acromial spur with AC joint arthritis. Calcification at rotator cuff insertion. I reviewed an MRI of the left shoulder which shows small tear ofsupraspinatus and probable upper border tear of subscapularis tendon with subluxation of biceps tendon. Atrophy of supraspinatus without fatty infiltration. Motion artifact noted. Assessment/Plan IMPRESSION: 1) Left shoulder rotator cuff tear, AC joint arthritis, and biceps tendon tear versus subluxation 2) Neck stiffness 2) Right arm numbness PLAN: Conservative options include PT and cortisone injection. Surgery is an option which would include left shoulder arthroscopy, rotator cuff repair, and distal clavicle excision. Lengthy discussion of surgical risk, benefits, procedure, and rehabilitation. Surgical consent signed. Discussed she may have other causes of numbness and muscle spasmssuch as her neck which she may consider further evaluation with a spine surgeon or further evaluation with me at a later appointment. Order referral provided for PT to work on shoulder stiffness and range of motion Follow-up as needed for [id number] operative appointmentscaden gets discomfort in her bicep. She was told that her biceprupture. That may be the case. If so I would not recommend repair. If her biceps is still intact she may need a tenotomy. Attestation I, Rama Stover, scribing for and in the presence of, Kleber Disla, on this date,316:16:45. Problem List/Past Medical History Suspected LLE blood clot (10/2021) Type II Diabetes Mellitus Procedure/Surgical History Carpal Tunnel release, Bilateral Achilles repair Social History Smoking Status Never smoked cigarettes Recommendations Health Maintenance Pending(in the next year) OverDue Adult Influenza Vaccine due09/17/22and every 1year Satisfied(in the past 1 year) There are no satisfied recommendations within the defined date range Electronic Signature on File Electronically Reviewed/Signed by: Rama Stover Author Signature Dt/Tm:03/15/2023 05:06 PM Electronically Reviewed/Signed by: Rama Stover Cosigner Signature Dt/Tm: 03/15/2023 05:12 PM Electronically Reviewed/Signed by: Kleber Disla MD Cosigner Signature Dt/Tm: 03/16/2023 03:55 PM Division of Sports Medicine [place] Patient Care team information Care Team Personnel Name: MD Mercer Aaradhana J Position: Resident Member Role: Lifetime Relationship Address: Address: [address] [place] [address] [place] Name: MD Alonso Brian C Position: Referring DIRECT Member Role: Primary Care Provider Address: Address: [address] [place] [address] [place]
[2023-04-20] MEDS ORDERED: GLUCAGON FOR INJ 1 MG VIAL IM PRN (20:45)
[2023-04-20] MEDS ORDERED: GLUCOSE 40% GEL 15 GM TUBE PO PRN (20:45)
[2023-04-20] MEDS ORDERED: DEXTROSE 50% 50 ML SYRINGE IV PRN (20:45)
[2023-04-20] MEDS ORDERED: GLUCOSE 10 TAB/TUBE PO PRN (20:45)
[2023-04-20] MEDS ORDERED: CARBOHYDRATES FOR HYPOGLYCEMIA PO PRN (20:45)
[2023-04-20] MEDS ORDERED: FLUTICASONE PROPIONATE NA SPR 16 GM BTL NAE SCH (21:00)
[2023-04-20] MEDS ORDERED: buPROPion XL 150 MG TABCR PO SCH (21:00)
[2023-04-20] MEDS ORDERED: ESCITALOPRAM OXALATE 20 MG TAB PO SCH (21:00)
[2023-04-20] MEDS ORDERED: GABAPENTIN 300 MG CAP PO SCH (21:00)
[2023-04-20] MEDS ORDERED: ATORVASTATIN 20 MG TAB PO SCH (21:00)
[2023-04-20] MEDS ORDERED: SENNA 8.6 MG TAB PO SCH (21:00)
[2023-04-20] MEDS ORDERED: MONTELUKAST SODIUM 10 MG TABLET PO SCH (21:00)
[2023-04-20] MEDS ORDERED: LOSARTAN POTASSIUM 25 MG TAB PO SCH (21:00)
[2023-04-20] MEDS: DOCUSATE SODIUM 100 MG CAP PO SCH (22:30)
[2023-04-20] MEDS: busPIRone 5 MG TAB PO SCH (22:30)
[2023-04-20] MEDS: INSULIN ASPART PER UNIT CHARGE SC SCH (22:31)
[2023-04-20] MEDS: ceFAZolin 2000MG 2,000 MG/15 ML SYR IV SCH (22:31)
[2023-04-20] MEDS: FUROSEMIDE 20 MG TAB PO SCH (22:31)
[2023-04-20] MEDS: CYCLOBENZAPRINE HCL 10 MG TAB PO PRN (22:32)
[2023-04-20] MEDS: ALBUTEROL HFA 8 GM INHALER INH PRN (22:37)
[2023-04-20] MEDS: ACETAMINOPHEN 500 MG TAB PO SCH (22:39)
[2023-04-21] MEDS: HYDROCODONE/ACETAMOPHEN 5/325MG TAB PO PRN ×2 (03:04→08:40)
[2023-04-21] MEDS: ACETAMINOPHEN 500 MG TAB PO SCH (05:56)
[2023-04-21] MEDS: ceFAZolin 2000MG 2,000 MG/15 ML SYR IV SCH (05:57)
[2023-04-21] MEDS: ALBUTEROL HFA 8 GM INHALER INH PRN (06:33)
[2023-04-21 07:44] LABS: Estimated Average Glucose 131 mg/dl; Hemoglobin A1C 6.2 % (4.5-5.6)
[2023-04-21] MEDS ORDERED: LANTUS PER UNIT CHARGE SC ONE (08:00)
[2023-04-21] MEDS: FUROSEMIDE 20 MG TAB PO SCH (08:41)
[2023-04-21] MEDS: DOCUSATE SODIUM 100 MG CAP PO SCH (08:41)
[2023-04-21] MEDS: busPIRone 5 MG TAB PO SCH (08:41)
[2023-04-21] MEDS: CYCLOBENZAPRINE HCL 10 MG TAB PO PRN (08:41)
[2023-04-21] MEDS: INSULIN ASPART PER UNIT CHARGE SC SCH (08:43)
--- NOTE | 2023-04-21 08:57 | Pharmacy Report ---
Pharmacy Glycemic Short Note 2 - Date of Service April 21, 2023 - Glycemic Short BSG Results (Last 24 hours): 04/20/23 04/20/23 04/20/23 09:23 09:29 14:28 Glucose 122 H POC Glucose 122 H 176 H 04/20/23 04/21/23 20:03 07:46 Glucose POC Glucose 171 H 193 H OUTPATIENT ANTIDIABETIC REGIMEN: * Mounjaro 10 mg SC weekly () HbA1c: 6.2% (04/21/23) ASSESSMENT: * MT is a 52 year old female POD #1 s/p left shoulder arthroscopy w/ rotator cuff repair * Received 8 mg IV dexamethasone and 80 mg Depo-medrol in OR * Patient with excellent HbA1c - controlled w/ Mounjaro monotherapy * Fasting BSG on day of surgery was 122 mg/dL, fasting BSG today of 193 mg/dL (likely related to high-dose steroids in OR) * No ongoing steroids ordered. Despite excellent HbA1c, will order low-dose basal insulin today to help cover yesterday's steroids. * Likely discharge today PLAN FOR INPATIENT GLYCEMIC CONTROL: * Hold outpatient oral diabetes medications * Basal insulin * Lantus 8 units SC x 1 (~0.1 unit/kg of adjusted body weight) * Bolus insulin * NovoLog per scale ACHS or Q6hrs while NPO * Goal Range: Low 110 mg/dL - High 140 mg/dL * Correction Factor: 25 mg/dL/unit * Nutritional / Prandial insulin per carb ratio of 1 unit per 7 grams CHO consumed
[2023-04-21] MEDS ORDERED: MULTIVITAMIN TAB PO SCH (09:00)
--- NOTE | 2023-04-21 09:22 | Orthopedic Progress Note ---
Date of Service April 21, 2023 Assessment & Plan (1) Paresthesia of bilateral legs: Plan: Doing well. I suspect that she had leg paresthesias related to positioning. Motor is intact. Sensory findings are improving. She should continue to monitor this I expected this resolves. If there is any problems in terms of persistent or worsening paresthesias pain or weakness she is to let me know or go to the emergency room. I discussed with her the results of the surgery on her left shoulder. She still has persistent nerve block there. Her pain is well-controlled. Will get her up ambulating with the nurse with assistance. If doing well we will then discharge her home today. She will follow-up as scheduled. (2) Rotator cuff tear: Admission and Anticipated Discharge Date Admission Date: April 20, 2023 Subjective Feels better. Pain is well-controlled. Reports left arm still numb. Numbness in both feet and lower extremities has improved. She feels as though she is able to walk. Physical Exam Physical Exam: Her sling is adjusted. She reports numbness in the left hand. Cap refill less than 2 seconds. Radial pulse is 1+ there is no significant swelling. Her median radial and ulnar motor functions are intact with normal strength but tingling and numbness throughout the hand especially the thumb. She moves and uses the right arm without difficulty. After checking her strength she was able to get up and ambulate normally with minimal to no assistance. She reports numbness throughout the left foot top bottom and sides. Nothing into the calf. Right leg there is numbness of the lateral thigh lateral and posterior calf but not medially. Her entire right foot is numb except for medial ankle. Numbness and tingling. Her DP and PT pulses are 1+. There is no tenderness she has good movement of the ankles and knees. Manual motor strength EHL tibialis anterior ankle plantarflexion eversion knee flexion and extension bilaterally is 5 out of 5. She reports her legs are slightly wobbly but she ambulates safely. Results & Data Vital Signs (Past 12 Hours) Vital Signs Temp Pulse Pulse Resp BP Pulse Ox O2 Del Method 04/21/23 07:47 36.8 C 92 H 16 108/67 92 Room Air 04/21/23 06:33 81 18 93 Room Air 04/21/23 03:37 36.8 C 92 H 16 102/58 L 94 Room Air 04/20/23 23:28 37.2 C 103 H 16 102/65 94 Room Air 04/20/23 22:35 92 H 16 94 Room Air
--- NOTE | 2023-04-21 12:27 | Discharge Summary ---
Date of Service April 21, 2023 Admission HPI Per Admitting Provider Patient is a pleasant 52-year-old female who is seen in ambulatory surgery unit after undergoing an elective left left rotator cuff repair of her shoulder. Her surgery was performed today by Dr. Disla. Postoperatively she has had noticeable numbness of both of her feet. The right leg has been getting worse over the last hour or 2. She states that it started in both of her feet and the right leg has progressed up to the mid thigh area. It was thought that it was from the thigh-high ARMOND stockings that were digging into her thighs and knee teds were applied. She did have a rotator cuff repair in the beachchair position today. She denies any pain in either leg. She states that the left foot is also numb but does seem to be improving. She is able to ambulate to the bathroom but feels that this is getting worse. She states that her legs feel like "tree trunks". She does not feel that she is able to lift her foot. She does not feel that her leg, especially her right leg will hold her. The left shoulder is doing fine. The sling is in place. She has had no postoperative nausea or vomiting. Denies any significant pain in the left shoulder. She does feel that the nerve block is still working. She is never had numbness or tingling in either leg in the past. Discharge Data Procedures Performed Operation Date: 04/20/23 10:30 Actual Procedures p Left Shoulder Arthroscopy, Rotator Cuff Repair, Distal Clavicle Excision, Injection left Middle Finger(Left) - Kleber Disla MD Hospital Course (1) Paresthesia of bilateral legs: Patient was kept in observation at [facility] after undergoing a left rotator cuff repair with subacromial decompression and distal clavicle excision. Postoperatively in the ambulatory surgery unit she was developing numbness in both of her lower extremities. She was unable to and walk normally. She did not have any pain. The idea was that she had some paresthesias from intraoperative positioning. Due to her inability to be mobile and ambulate she was kept in observation for evaluation. She was provided Dilaudid and [place] for postoperative pain control. She was instructed to keep the sling in place and her postoperative dressings in place. She was given a regular diet and her home medications were continued. Glycemic consult was placed for management of her diabetes. She was allowed out of bed to bedside commode with assistance from nursing and a cane if necessary. Physical therapy was consulted for postoperative day 1 to see how she ambulates. On postoperative day 1 she was doing significantly better. She still had some mild paresthesias in her lower l egs but it was much improved. She is able to ambulate throughout the room on her own. She did not develop any postoperative nausea vomiting lightheadedness or dizziness. Did not have any postoperative chest pain or shortness of breath. Due to her improvement with her paresthesias in both legs it was determined that she was safe to return home. She was discharged to her home in stable condition on April 21, 2023. (2) Rotator cuff tear: As per above.
--- NOTE | 2023-04-21 12:49 | Orthopedic Progress Note ---
Date of Service April 21, 2023 Assessment & Plan (1) Rotator cuff tear: Plan: Keep sling and dressing in place Follow-up on Monday for dressing change. Discharge home after PT evaluation Patient may come out of the sling to do range of motion exercises for her elbow hand wrist and fingers. Ice with easy wrap Pain control with p.o. medication Follow-up at [facility] orthopedics as previously scheduled. (2) Paresthesia of bilateral legs: Plan: Paresthesias are resolving in the lower extremities. Most likely related to bulging disc at the L5 and S1 level. May need to be evaluated in the future for possibility of a lumbar epidural steroid injection. Admission and Anticipated Discharge Date Admission Date: April 20, 2023 Subjective This 52-year-old female seen this morning for follow-up of developing bilateral lower extremity numbness and inability to ambulate after Left Shoulder Arthroscopy, Rotator Cuff Repair, arthroscopic distal Clavicle Excision, sterile injection left Middle Finger performed by Dr. Disla yesterday. Patient states that the numbness is resolving. She states she is now able to feel her feet and ambulate but she still has a numb tingling sensation in her thigh areas bilaterally. Patient states that she attributes this due to the bulging disc that she has in her lower back after giving 19 years ago. She states that she has much better today. She states she has really no pain in her shoulder. She is hoping to be discharged as soon as possible. She was seen by physical therapy and they deemed her to be safe to be discharged home. She is scheduled to be seen in our office next Monday. Review of Systems Review of Systems: All systems reviewed & are unremarkable except as noted in Subjective Physical Exam Physical Exam: Left shoulder: Dressing is clean dry and intact and left in place. Patient is in the pillow sling and states it is very comfortable. She is able to move all of her digits. She is able to detect light sensation to touch over the pads of all digits. Buzzsaw Operator strength is equal bilaterally. Lower extremities: Patient is able to detect light sensation to touch over the pads of all digits and plantar aspect of her foot. She is also able to infect light sensation to touch over the calf areas but has a slight dermatomal deficit of the L5 and S1 dermatome in the right lower extremity. She was able to easily ambulate from her bedside chair to the restroom. She is neurovascular intact in both lower extremities. Results & Data Vital Signs (Past 12 Hours) Vital Signs Temp Pulse Pulse Resp BP Pulse Ox O2 Del Method 04/21/23 07:47 36.8 C 92 H 16 108/67 92 Room Air 04/21/23 06:33 81 18 93 Room Air 04/21/23 03:37 36.8 C 92 H 16 102/58 L 94 Room Air Diagnostic Findings Laboratory Results WBC 10.14 K/ul (4.8-10.8) 04/20/23 09:23 RBC 4.52 M/uL (4.20-5.40) 04/20/23 09:23 Hgb 14.1 g/dl (12.0-16.0) 04/20/23 09:23 Hct 41.7 % (37.0-47.0) 04/20/23 09:23 MCV 92.3 fL (80.0-100.0) 04/20/23 09:23 MCH 31.2 pg (25.0-34.0) 04/20/23 09:23 MCHC 33.8 g/dL (32.0-36.0) 04/20/23 09:23 RDW Std Deviation 42.8 fL (36.4-46.3) 04/20/23 09:23 RDW Coeff of Lori 12.6 % (11.5-14.5) 04/20/23 09:23 Plt Count 212 K/uL (130-400) 04/20/23 09:23 MPV 9.7 fL (9.4-12.4) 04/20/23 09:23 Immature Gran % (Auto) 0.5 % 04/20/23 09:23 Neut % (Auto) 59.1 % 04/20/23 09:23 Lymph % (Auto) 31.1 % 04/20/23 09:23 Storey % (Auto) 6.9 % 04/20/23 09:23 Eos % (Auto) 2.1 % 04/20/23 09:23 Baso % (Auto) 0.3 % 04/20/23 09:23 Neut # (Auto) 6.00 K/uL (1.40-6.50) 04/20/23 09:23 Lymph # (Auto) 3.15 K/uL (1.20-3.40) 04/20/23 09:23 Storey # (Auto) 0.70 K/uL (0.11-0.59) H 04/20/23 09:23 Eos # (Auto) 0.21 K/uL (0.00-0.50) 04/20/23 09:23 Baso # (Auto) 0.03 K/uL (0.00-0.20) 04/20/23 09:23 Immature Gran # (Auto) 0.05 K/uL (0.01-0.20) 04/20/23 09:23 PT 10.3 Seconds (9.0-12.0) 04/20/23 09:23 INR 0.9 (0.9-1.1) 04/20/23 09:23 APTT 27 Seconds (21-31) 04/20/23 09:23 PTT Ratio 1.0 04/20/23 09:23 Sodium 139 mmol/L (136-145) 04/20/23 09:23 Potassium 3.9 mmol/L (3.5-5.1) 04/20/23 09:23 Chloride 102 mmol/L (98-107) 04/20/23 09:23 Carbon Dioxide 33 mmol/L (21-32) H 04/20/23 09:23 Anion Gap 4 (3-11) 04/20/23 09:23 BUN 14 mg/dl (6-23) 04/20/23 09:23 Creatinine 0.82 mg/dl (0.6-1.2) 04/20/23 09:23 Est Cr Clr Drug Dosing 99.8 ml/min 04/20/23 09:23 Est GFR ( Amer) 94.7 ml/min 04/20/23 09:23 Est GFR (Non-Af Amer) 81.7 ml/min 04/20/23 09:23 BUN/Creatinine Ratio 17.1 (10-20) 04/20/23 09:23 Glucose 122 mg/dl (70-99(Fasting)) H 04/20/23 09:23 POC Glucose 193 mg/dl (70-99) H 04/21/23 07:46 Estimat Average Glucose 131 mg/dl 04/20/23 09:23 Hemoglobin A1c 6.2 % (4.5-5.6) H 04/20/23 09:23 Calcium 9.4 mg/dl (8.6-10.3) 04/20/23 09:23
== END 2023-04-21 13:26 | disposition home or self-care (01) ==
LOC: ASU 09:02 → 3W 09:02